=== PATIENT | male | born 1950 | race Native Hawaiian/Other Pacific Islander ===

== ENCOUNTER 2017-09-06 09:54 | Emergency (ER) | payer OTHER ==
[~2017-09-06] VITALS: Ht 177.8 cm; Wt 90.5 kg
[~2017-09-06 09:54] MED LIST: LORTA5 PO; LOSA25TA31 PO
[2017-09-06 09:58] VITALS: BP 158/81; PULSE 82; RESP 18; TEMP 100.7
[2017-09-06] MEDS ORDERED: SODIUM CHLORIDE 0.9% FLUSH 10 ML FLUSH IVF PRN (10:30)
[2017-09-06] MEDS ORDERED: methylPREDNISolone SOD SUCC 125 MG/2 ML VIAL IV PUSH ONE (10:30)
[2017-09-06] MEDS ORDERED: SODIUM CHLOR 0.9% 1000 ML INJ 1,000 ML IV SCH (10:30)
[2017-09-06] MEDS ORDERED: RESP: ALBUTEROL 2.5 MG/IPRATROPIUM 0.5 MG NEB (SCH) INH ONE (10:30)
[2017-09-06] MEDS ORDERED: ACETAMINOPHEN 325 MG TAB PO ONE (10:30)
[2017-09-06] MEDS ORDERED: RESP: LIDOCAINE HCL 4% PF 5 ML NEB NEB ONE (10:30)
--- NOTE | 2017-09-06 10:46 | PD ---
HPI Chief Complaint: Cold / Flu Symptoms Time Seen by Provider: 10:09 Travel History International Travel<30 days: No Contact w/Intl Traveler<30days: No Traveled to known affect area: No History of Present Illness HPI The patient is a 67-year-old male who presents to the emergency department for cough and cold symptoms. The patient was recently on a cruise that went from [facility] to the [facility]. The patient states there are multiple sick people on the cruise. He did have a sore throat, one episode of diarrhea, however, those symptoms resolved. He then developed fever, chills, and rigors which have been intermittent. He now notes an increasing cough producing yellow to brown sputum over the last several days with occasional shortness of breath. He did receive a pneumococcal vaccination April. He denies any nausea, vomiting, recurrent abdominal pain. He denies any history of previous pneumonia. He denies any travel to tropical areas with regards to dengue fever and malaria. 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 The patient is followed by his primary physician in [place], does not have a local primary physician. Symptoms are moderate. PFSH Past Medical History Hx Anticoagulant Therapy: No Cancer: Yes (dudenal cancer) Cardiovascular Problems: Yes (htn) Chemotherapy: No Cerebrovascular Accident: No Diabetes: No Endocrine: No Gastrointestinal Disorders: No Genitourinary: No Hepatitis: No Hiatal Hernia: No Hypertension: Yes Immune Disorder: No Musculoskeletal: No Neurologic: No Psychiatric: No Reproductive: No Respiratory: No Thyroid Disease: No Past Surgical History Abdominal Surgery: Yes (embolization) AICD: No Cardiac Surgery: No Ear Surgery: No Endocrine Surgery: No Eye Surgery: No Genitourinary Surgery: No Gynecologic Surgery: No Hysterectomy: No Joint Replacement: No Neurologic Surgery: No Oral Surgery: No Pacemaker: No Thoracic Surgery: No Other Surgery: Yes Social History Alcohol Use: No Tobacco Use: No Substance Use: No Allergies-Medications (Allergen,Severity, Reaction): Coded Allergies: No Known Allergies (Unverified Allergy, Unknown, 09/06/17) Reported Meds & Prescriptions Reported Meds & Active Scripts Active Reported Cozaar (Losartan Potassium) 25 Mg Tab 25 Mg PO DAILY [place] 5/325 (Hydrocodone/Acetaminophen 5/325) 5 mg/325 mg Tab 1 Tab PO Q4H PRN Review of Systems Except as stated in HPI: all other systems reviewed are Neg General / Constitutional: Positive: Fever, Chills HENT: Positive: Sore Throat (Resolved) Cardiovascular: No: Chest Pain or Discomfort Respiratory: Positive: Cough, Shortness of Breath Gastrointestinal: Positive: Diarrhea (1 episode of diarrhea 2 weeks ago which resolved), No: Nausea, Vomiting Genitourinary: No: Dysuria Musculoskeletal: No: Edema Skin: No Rash Physical Exam Narrative GENERAL: Awake, alert, pleasant 67-year-old male who appears his stated age and is in no acute respiratory distress. SKIN: Focused skin assessment warm/dry. HEAD: Atraumatic. Normocephalic. EYES: Pupils equal and round. No scleral icterus. No injection or drainage. ENT: No nasal bleeding or discharge. Mucous membranes pink and moist. NECK: Trachea midline. No JVD. CARDIOVASCULAR: Regular rate and rhythm. No murmur appreciated. RESPIRATORY: No accessory muscle use. C rhonchi noted in right upper lung and right base. GASTROINTESTINAL: Abdomen soft, non-tender, nondistended. Well-healed scar left lateral abdomen. MUSCULOSKELETAL: No obvious deformities. No clubbing. No cyanosis. No edema. NEUROLOGICAL: Awake and alert. No obvious cranial nerve deficits. Motor grossly within normal limits. Normal speech. PSYCHIATRIC: Appropriate mood and affect; insight and judgment normal. Data Data Last Documented VS Vital Signs Date Time Temp Pulse Resp B/P (MAP) Pulse Ox O2 Delivery O2 Flow Rate FiO2 09/06/17 09:58 100.7 82 18 158/81 (106) Orders Orders Chest, Single Ap (09/06/17 10:11) Electrocardiogram (09/06/17 10:22) Complete Blood Count With Diff (09/06/17 10:22) Comprehensive Metabolic Panel (09/06/17 10:22) Lactic Acid Sepsis Protocol (09/06/17 10:22) Influenzae A/B Antigen (09/06/17 10:22) Urinalysis - C+S If Indicated (09/06/17 10:22) Blood Culture (09/06/17 10:22) Sputum Culture And Gram Stain (09/06/17 10:22) Ecg Monitoring (09/06/17 10:22) Iv Access Insert/Monitor (09/06/17 10:22) Oximetry (09/06/17 10:22) Sodium Chloride 0.9% Flush (Ns Flush) (09/06/17 10:30) Acetaminophen (Tylenol) (09/06/17 10:30) Albuterol-Ipratropium Neb (Duoneb Neb) (09/06/17 10:30) Methylprednisolone So Succ Inj (Solumedr (09/06/17 10:30) Sodium Chlor 0.9% 1000 Ml Inj (Ns 1000 M (09/06/17 10:30) Lidocaine Pf 4% Neb (Lidocaine Pf 4% Neb (09/06/17 10:30) Legionella Urinary Antigen (09/06/17 10:22) B-Type Natriuretic Peptide (09/06/17 10:24) Promethazine/Codeine Liq (Phenergan-Code (09/06/17 11:45) Labs Laboratory Tests Test 09/06/17 10:45 White Blood Count 14.3 TH/MM3 Red Blood Count 4.45 MIL/MM3 Hemoglobin 12.9 GM/DL Hematocrit 37.9 % Mean Corpuscular Volume 85.1 FL Mean Corpuscular Hemoglobin 29.0 PG Mean Corpuscular Hemoglobin Concent 34.0 % Red Cell Distribution Width 13.4 % Platelet Count 180 TH/MM3 Mean Platelet Volume 8.6 FL Neutrophils (%) (Auto) 81.2 % Lymphocytes (%) (Auto) 8.0 % Monocytes (%) (Auto) 10.1 % Eosinophils (%) (Auto) 0.4 % Basophils (%) (Auto) 0.3 % Neutrophils # (Auto) 11.6 TH/MM3 Lymphocytes # (Auto) 1.1 TH/MM3 Monocytes # (Auto) 1.5 TH/MM3 Eosinophils # (Auto) 0.1 TH/MM3 Basophils # (Auto) 0.0 TH/MM3 CBC Comment DIFF FINAL Differential Comment Urine Color YELLOW Urine Turbidity CLEAR Urine pH 6.5 Urine Specific [place] 1.015 Urine Protein 30 mg/dL Urine Glucose (UA) NEG mg/dL Urine Ketones NEG mg/dL Urine Occult Blood NEG Urine Nitrite NEG Urine Bilirubin NEG Urine Urobilinogen 2.0 MG/DL Urine Leukocyte Esterase NEG Urine RBC 1 /hpf Urine WBC LESS THAN 1 /hpf Microscopic Urinalysis Comment CULT NOT INDICATED Blood Urea Nitrogen 15 MG/DL Creatinine 1.50 MG/DL Random Glucose 117 MG/DL Total Protein 7.3 GM/DL Albumin 3.4 GM/DL Calcium Level 8.0 MG/DL Alkaline Phosphatase 70 U/L Aspartate Amino Transf (AST/SGOT) 18 U/L Alanine Aminotransferase (ALT/SGPT) 21 U/L Total Bilirubin 0.9 MG/DL Sodium Level 131 MEQ/L Potassium Level 4.2 MEQ/L Chloride Level 98 MEQ/L Carbon Dioxide Level 25.9 MEQ/L Anion Gap 7 MEQ/L Estimat Glomerular Filtration Rate 47 ML/MIN Lactic Acid Level 1.1 mmol/L B-Type Natriuretic Peptide 154 PG/ML MDM Medical Decision Making Medical Screen Exam Complete: Yes Emergency Medical Condition: Yes Medical Record Reviewed: Yes Interpretation(s) EKG revealed normal sinus rhythm with a rate of 75. RSR prime in V1 with QRS of 145 ms consistent with right bundle branch block. Last Impressions Chest X-Ray 09/06/17 1011 Signed Impressions: Service Date/Time: Wednesday, September 06, 2017 10:34 - CONCLUSION: 1. Borderline cardiomegaly. 2. No evidence of acute process. James Tay MD Date/Time Source Procedure Growth Status 09/06/17 10:50 Blood Peripheral Aerobic Blood Culture Pending Received 09/06/17 10:50 Blood Peripheral Anaerobic Blood Culture Pending Received 09/06/17 10:40 Blood Peripheral Aerobic Blood Culture Pending Received 09/06/17 10:40 Blood Peripheral Anaerobic Blood Culture Pending Received 09/06/17 10:50 Nasal Washing Influenza Types A,B Antigen (HECTOR) - Final NEGATIVE FOR FLU A AND B ANTIGEN.... Complete 09/06/17 10:45 Sputum Expectorated Sputum Gram Stain Pending Received 09/06/17 10:45 Sputum Expectorated Sputum Sputum Culture Pending Received 09/06/17 10:45 Urine Clean Catch Legionella Antigen Pending Received Laboratory Tests Test 09/06/17 10:45 White Blood Count 14.3 TH/MM3 Red Blood Count 4.45 MIL/MM3 Hemoglobin 12.9 GM/DL Hematocrit 37.9 % Mean Corpuscular Volume 85.1 FL Mean Corpuscular Hemoglobin 29.0 PG Mean Corpuscular Hemoglobin Concent 34.0 % Red Cell Distribution Width 13.4 % Platelet Count 180 TH/MM3 Mean Platelet Volume 8.6 FL Neutrophils (%) (Auto) 81.2 % Lymphocytes (%) (Auto) 8.0 % Monocytes (%) (Auto) 10.1 % Eosinophils (%) (Auto) 0.4 % Basophils (%) (Auto) 0.3 % Neutrophils # (Auto) 11.6 TH/MM3 Lymphocytes # (Auto) 1.1 TH/MM3 Monocytes # (Auto) 1.5 TH/MM3 Eosinophils # (Auto) 0.1 TH/MM3 Basophils # (Auto) 0.0 TH/MM3 CBC Comment DIFF FINAL Differential Comment Urine Color YELLOW Urine Turbidity CLEAR Urine pH 6.5 Urine Specific [place] 1.015 Urine Protein 30 mg/dL Urine Glucose (UA) NEG mg/dL Urine Ketones NEG mg/dL Urine Occult Blood NEG Urine Nitrite NEG Urine Bilirubin NEG Urine Urobilinogen 2.0 MG/DL Urine Leukocyte Esterase NEG Urine RBC 1 /hpf Urine WBC LESS THAN 1 /hpf Microscopic Urinalysis Comment CULT NOT INDICATED Blood Urea Nitrogen 15 MG/DL Creatinine 1.50 MG/DL Random Glucose 117 MG/DL Total Protein 7.3 GM/DL Albumin 3.4 GM/DL Calcium Level 8.0 MG/DL Alkaline Phosphatase 70 U/L Aspartate Amino Transf (AST/SGOT) 18 U/L Alanine Aminotransferase (ALT/SGPT) 21 U/L Total Bilirubin 0.9 MG/DL Sodium Level 131 MEQ/L Potassium Level 4.2 MEQ/L Chloride Level 98 MEQ/L Carbon Dioxide Level 25.9 MEQ/L Anion Gap 7 MEQ/L Estimat Glomerular Filtration Rate 47 ML/MIN Lactic Acid Level 1.1 mmol/L B-Type Natriuretic Peptide 154 PG/ML Differential Diagnosis Differential diagnosis includes pneumonia, bronchitis, Legionella, influenza, URI, viral syndrome, pleural effusion, cardiac myopathy, congestive heart failure, sepsis. Narrative Course IV was established, labs are drawn and sent, and the patient was placed on cardiac telemetry monitoring and continuous pulse oximetry monitoring. EKG was ordered and interpreted. Chest x-ray was obtained. Blood culture, lactic acid , and Legionella urine antigen were sent to lab. The patient received duo neb with respiratory lidocaine and IV fluids. Patient also received Solu-Medrol 125 mg intravenously. Chest x-ray reveals mild cardiomegaly, no evidence of infiltrate. Influenza screen is negative. White count is elevated, however, lactic acid is normal. BNP is only 154. Patient appears to have pneumonia that is not visualized on x-ray versus bronchitis, will treat with prednisone, Zithromax, albuterol inhaler, and Phenergan with codeine. He will be provided a copy of his x-ray results and lab results at discharge. He is advised to follow-up with a primary physician and return if symptoms worsen or progress. Diagnosis Primary Impression: Febrile illness Additional Impression: Bronchitis Patient Instructions: General Instructions Additional Instructions: Medications as directed. Please provide the patient a copy of his x-ray results and lab results at discharge. Return if symptoms worsen or progress. Med/Other Pt SpecificInfo: Prescription(s) given Scripts Promethazine-Codeine Liq (Promethazine-Codeine Liq) 6.25-10 Mg/5 Ml Syrp 10 ML PO Q6H Y for COUGH AND/OR COLD SYMPTOMS, #240 ML 0 Refills Prov: Kee Correia MD 09/06/17 Albuterol 8.5 GM Inh (Proair Hfa 8.5 GM Inh) 90 Mcg/Act Aer 2 PUFF INH Q4-6H Y for SHORTNESS OF BREATH, #1 INHALER 0 Refills 108 mcg/actuation Prov: Kee Correia MD 09/06/17 Azithromycin (Zithromax Z-[place]) 250 Mg Dspk 250 MG PO DIRECTED for Infection, #1 DSPK 0 Refills 500 MG (2 tabs) day 1, then 1 tab days 2-5. Prov: Kee Correia MD 09/06/17 Prednisone (Prednisone) 20 Mg Tab 40 MG PO DAILY for 4 Days, #8 TAB 0 Refills Take 40 mg (2 tablets) daily for 5 days Prov: Kee Correia MD 09/06/17 Disposition: 01 DISCHARGE HOME Condition: Stable Kee Correia MD Sep 06, 2017 10:45
--- NOTE | 2017-09-06 11:14 | RADRPT ---
EXAM DATE/TIME: 09/06/2017 10:34 [facility] COMPARISON: CHEST SINGLE AP, October 15, 2015, 2:48. INDICATIONS : Cough, short of breath, wheexing x1 week. MEDICAL HISTORY : None. SURGICAL HISTORY : Nephrectomy, left. ENCOUNTER: Initial ACUITY: 1 day PAIN SCORE: 0/10 LOCATION: Bilateral chest FINDINGS: The heart is at the upper limits of normal in size to mildly enlarged. Lungs are free of significant airspace disease or congestion. There are no pleural effusions or mass densities. Osseous structures are intact. CONCLUSION: 1. Borderline cardiomegaly. 2. No evidence of acute process. James Tay MD on September 06, 2017 at 11:09 Board Certified Radiologist. This report was verified electronically.
[2017-09-06 11:18] LABS: BILIRUBIN, URINE NEG (NEG); BLOOD, URINE NEG (NEG); GLUCOSE,URINE NEG (NEG); KETONE, URINE NEG (NEG); NITRITE,URINE NEG (NEG); PH, URINE 6.5 (5.0-8.5); URINE COLOR YELLOW (YELLW/STRAW); URINE LEUKOCYTE ESTERASE NEG (NEG)
[2017-09-06 11:28] LABS: AUTOMATED NEUTROPHIL # 11.6 TH/MM3 (1.8-7.7); BASOPHIL % 0.3 % (0.0-2.0); EOSINOPHIL # 0.1 TH/MM3 (0-0.4); EOSINOPHIL % 0.4 % (0.0-4.0); HEMATOCRIT 37.9 % (39.0-51.0); HEMOGLOBIN 12.9 GM/DL (13.0-17.0); LYMPHOCYTE # 1.1 TH/MM3 (1.0-4.8); MEAN CELL VOLUME 85.1 FL (80.0-100.0); MEAN PLATELET VOLUME 8.6 FL (7.0-11.0); MONO % 10.1 % (0.0-8.0); MONOCYTE # 1.5 TH/MM3 (0-0.9); NEUT % 81.2 % (16.0-70.0); PLATELET COUNT 180 TH/MM3 (150-450); RED BLOOD COUNT 4.45 MIL/MM3 (4.50-5.90); RED CELL DISTRIBUTION WIDTH 13.4 % (11.6-17.2); WHITE BLOOD COUNT 14.3 TH/MM3 (4.0-11.0)
[2017-09-06 11:45] LABS: ALBUMIN 3.4 GM/DL (3.4-5.0); AST (GOT) 18 U/L (15-37); BICARBONATE 25.9 MEQ/L (21.0-32.0); BLOOD UREA NITROGEN 15 MG/DL (7-18); CHLORIDE 98 MEQ/L (98-107); GLOMERULAR FILTRATION RATE 47 ML/MIN (>89); GLUCOSE,RANDOM 117 MG/DL (74-106); SODIUM (NA) 131 MEQ/L (136-145)
[2017-09-06] MEDS ORDERED: PROMETHAZINE/CODEINE 6.25 MG/10 MG/5 ML CUP PO ONE (11:45)
[2017-09-06 11:47] LABS: ALT (GPT) 21 U/L (12-78)
[2017-09-06 11:49] LABS: ALKALINE PHOSPHATASE 70 U/L (45-117); TOTAL BILIRUBIN ADULT 0.9 MG/DL (0.2-1.0); TOTAL PROTEIN 7.3 GM/DL (6.4-8.2)
[2017-09-06] MEDS ORDERED: PROM6.256 PO (12:41)
[2017-09-06] MEDS ORDERED: PRED20 PO (12:41)
[2017-09-06] MEDS ORDERED: ALBUAER3 INH (12:41)
[2017-09-06] MEDS ORDERED: ZITHTAB PO (12:41)
[2017-09-06 12:56] VITALS: BP 142/74; PULSE 71; RESP 15; O2SAT 95
[2017-09-06 12:59] VITALS: BP 142/74; TEMP 99.1
--- NOTE | 2017-09-06 13:27 | EKG ---
Date Performed: 09/06/2017 Time Performed: 10:42:13 PTAGE: 67 years EKG: Sinus rhythm RIGHT BUNDLE BRANCH BLOCK ABNORMAL ECG PREVIOUS TRACING : 10/15/2015 02.33 DOCTOR: Facundo Corral Interpretating Date/Time 09/06/2017 13:26:03
== END 2017-09-06 13:10 | disposition home or self-care (01) ==
LOC: NEPD 09:54
DX: R50.9 Fever, unspecified (principal); J40 Bronchitis, not specified as acute or chronic; R94.31 Abnormal electrocardiogram [ECG] [EKG]; B96.3 Hemophilus influenzae [H. influenzae] as the cause of diseases classified elsewhere; I10 Essential (primary) hypertension; R06.02 Shortness of breath
CPT/HCPCS: 71045; 80053; 81001; 83605; 83880; 85025; 87040; 87070; 87184; 87205; 87449; 87804; 93005; 94664; 96361; 96374; 99285; J2930; J7030